=== PATIENT | female | born 1990 | race Caucasian/White ===

== ENCOUNTER 2018-07-12 17:49 | Emergency (ER) | payer BC ==
[2018-07-12 18:56] LABS: PLATELET COUNT 249 10^3/uL (150-400)
--- NOTE | 2018-07-12 19:44 | EDPHY ---
H & P Stated Complaint: syncope while standing up Time Seen by Provider: 07/12/18 18:12 HPI/ROS: CHIEF COMPLAINT: Syncope HISTORY OF PRESENT ILLNESS: This is a 27 year old female 19 weeks with BRIAN 8--. she presents after experiencing a syncopal episode in a chiropractor's office. She was undergoing chiropractic treatment for round ligament pain--this involved lying supine for about five minutes. When she sat up she experienced tunnel vision and apparently fainted. She did not fall or injure herself. She awoke quickly and was without confusion. No reported seizure activity. REVIEW OF SYSTEMS: A ten system review of systems was performed and is negative with the exception of the items mentioned in the HPI. Past medical history: Negative Past surgical history: Negative Social history: She is here with her . No tobacco or alcohol use. General Appearance: Alert. Vital signs reviewed. BP 124/82, HR 53, RR 18. Oxygen 99%RA. Head: Normocephalic, atraumatic. Eyes: Pupils equal and round, no conjunctival injection, no discharge. Anicteric. ENT, Mouth: Mucous membranes are moist, no oropharyngeal erythema or edema. Neck: No lymphadenopathy, supple. Nontender over cervical spine in midline. Respiratory: Lungs are clear to auscultation; no wheezes, rales, or rhonchi. Cardiovascular: Regular rate and rhythm; no murmur, rub, or gallop. Gastrointestinal: Abdomen is gravid, soft and nontender, no masses or organomegaly, bowel sounds normal. Skin: Warm and dry, no rashes on exposed skin, normal color. Back: Nontender to palpation over the thoracolumbar spine. No CVAT. Extremities: No lower extremity edema, no calf tenderness or swelling. Neurological: Alert and oriented. Moving all four extremities easily and equally. Cranial nerves II through XII are examined and are intact (visual acuity not tested). Strength is 5 over 5 bilaterally with testing of all major motor groups. Sensation is intact to light touch over all 4 extremities. Deep tendon reflexes are 2+ in the biceps and knees bilaterally. Gait is normal. [id number] is performed accurately. Psychiatric: Normal affect. - Personal History LMP (Females 10-55): Current Tetanus Diphtheria and Acellular Pertussis (TDAP): Yes - Medical/Surgical History Hx Asthma: No Hx Chronic Respiratory Disease: No Hx Diabetes: No Hx Cardiac Disease: No Hx Renal Disease: No Hx Cirrhosis: No Hx Alcoholism: No Hx HIV/AIDS: No Hx Splenectomy or Spleen Trauma: No Other PMH: denies - Social History Smoking Status: Never smoked Constitutional: Initial Vital Signs Temperature (C) 36.3 C 07/12/18 17:55 Heart Rate 53 L 07/12/18 17:55 Respiratory Rate 18 07/12/18 17:55 Blood Pressure 124/82 H 07/12/18 17:55 O2 Sat (%) 99 07/12/18 17:55 O2 Delivery Mode Room Air Allergies/Adverse Reactions: amoxicillin Allergy (Verified 07/12/18 17:54) Home Medications: Medication Instructions Recorded 07/12/18 Medical Decision Making - Diagnostics EKG Interpretation: EKG interpreted by ED physician. EKG shows sinus rhythm at rate of 62. No ischemic changes. Normal interval, axis. Procedures: I performed a brief bedside ultrasound. heart tones 140s to 150. Active fetus, no placenta previa or abruption noted. No images saved. This study was performed primarily to assess FHTs and reassure patient. ED Course/Re-evaluation: 27-year-old female with syncopal episode. She is 18 weeks . Evaluation included CBC, EKG, bedside ultrasound to assess heart tones. All of these tests are normal. I spoke with Dr. Weathers who is the OBGYN on-call. She does not recommend further evaluation. I believe that this was a vasovagal syncopal event. Patient is comfortable returning home. Differential Diagnosis: Syncope including but not limited to vasovagal syncope, arrhythmia, dehydration , and blood loss. - Data Points Laboratory Results: Laboratory Results 07/12/18 18:20 Point of Care Test Results: Chemistry 07/12/18 18:19 POC Troponin I 0.00 ng/mL ng/mL (0.00-0.08) Departure - Departure Disposition: Home, Routine, Self-Care Clinical Impression: Syncope Qualifiers: Syncope type: vasovagal syncope Qualified Code(s): R55 - Syncope and collapse Condition: Good Instructions: Syncope (ED) Additional Instructions: Follow up with [facility] of your choice as planned. Referrals: Patricia Weathers DO [Doctor of Osteopathy] - As per Instructions
[2018-07-12 20:22] VITALS: BP 111/69
--- NOTE | 2018-07-12 23:31 | CPEKG ---
Test Reason : OPEN Blood Pressure : / mmHG Vent. Rate : 062 BPM Atrial Rate : 062 BPM P-R Int : 126 ms QRS Dur : 081 ms QT Int : 456 ms P-R-T Axes : 057 073 059 degrees QTc Int : 463 ms Sinus rhythm Confirmed by Hilary Galaviz ([id number]) on 07/12/2018 11:31:23 PM Referred By: HILARY GALAVIZ Confirmed By:Hilary Galaviz
--- NOTE | 2018-07-12 23:32 | CPEKG ---
Test Reason : OPEN Blood Pressure : / mmHG Vent. Rate : 057 BPM Atrial Rate : 057 BPM P-R Int : 129 ms QRS Dur : 087 ms QT Int : 459 ms P-R-T Axes : 056 065 055 degrees QTc Int : 447 ms Sinus rhythm Confirmed by Karen Gunderson ([id number]) on 07/12/2018 11:31:46 PM Referred By: PHYSICIAN ED Confirmed By:Karen Gunderson
== END 2018-07-12 20:21 | disposition home or self-care (01) ==
DX: O99.89 Other specified diseases and conditions complicating pregnancy, childbirth and the puerperium (principal); R55 Syncope and collapse; Z3A.19 19 weeks gestation of pregnancy
CPT/HCPCS: 84484-ER